=== PATIENT | female | born 1960 | race Asian ===

== ENCOUNTER 2020-02-26 15:20 | Outpatient (CLI) | payer BC ==
[2020-02-26 16:02] LABS: BASOPHILS % (AUTO) 0.9 % (0.0-2.0); EOSINOPHILS % (AUTO) 1.3 % (0.0-6.0); HEMATOCRIT 33 % (33-45); HEMOGLOBIN 9.5 g/dL (11.5-14.8); LYMPHOCYTES # (AUTO) 2.9 /CMM (0.8-4.8); LYMPHOCYTES % (AUTO) 58.8 % (20.0-44.0); MEAN CORPUSCULAR HGB CONC 29 g/dl (31.0-36.0); MEAN CORPUSCULAR VOLUME 56 fL (82-100); MONOCYTES # (AUTO) 0.2 /CMM (0.1-1.30); NEUTROPHILS # (AUTO) 1.7 /CMM (1.8-8.9); PLATELET COUNT (AUTO) 219 /CMM (150-450)
[2020-02-26 16:06] LABS: APPEARANCE,URINE CLEAR (CLEAR); BILIRUBIN,URINE NEGATIVE (NEGATIVE); BLOOD, URINE TRACE-INTA Ery/uL (NEGATIVE); COLOR,URINE YELLOW (YELLOW); KETONES,URINE NEGATIVE (NEGATIVE); LEUKOCYTE ESTERASE ,URINE SMALL (NEGATIVE); NITRITE, URINE NEGATIVE (NEGATIVE); PROTEIN,URINE NEGATIVE (NEGATIVE); UGLUCOSE NEGATIVE (NEGATIVE)
[2020-02-26 16:14] LABS: ALBUMIN 4.3 g/dL (3.4-5.0); BILIRUBIN,TOTAL 0.8 mg/dL (0.2-1.0); CALCIUM, SERUM 9.9 mg/dL (8.5-10.1); CREATININE 0.9 mg/dL (0.6-1.3); POTASSIUM 3.9 mmol/L (3.5-5.1)
[2020-02-26 16:17] LABS: WBC,URINE 51-80 /HPF (0-3)
[2020-02-26 16:18] LABS: BACTERIA,URINE 1+ /HPF (None Seen); SQUAMOUS EPITHELIAL CELL,UR Few /HPF (None Seen)
[2020-02-26 16:26] LABS: FREE T4 (FREE THYROXINE) 1.09 ng/dL (0.76-1.46); THYROID STIMULATING HORMONE 2.752 uIU/mL (0.358-3.74)
[2020-02-26 16:29] LABS: LYMPHOCYTES % (MANUAL) 35 % (16-48); MONOCYTES % (MANUAL) 8 % (0-11.0); NEUTROPHILS % (MANUAL) 57 (42-76)
[2020-02-27 08:07] LABS: FOLIC ACID 9.8 ng/mL (>3.0)
== END 2020-02-26 23:59 | disposition home or self-care (01) ==
LOC: LAB 15:20
PROVIDERS: ATTEND Legal Medicine
DX: E11.9 Type 2 diabetes mellitus without complications (principal); E55.9 Vitamin D deficiency, unspecified; E03.9 Hypothyroidism, unspecified; D64.9 Anemia, unspecified; Z00.00 Encounter for general adult medical examination without abnormal findings
CPT/HCPCS: 36415; 80053-TC; 80061-TC; 81000-TC; 82306; 82728-TC; 83540-TC; 84439-TC; 84443-TC; 84550-TC; 85025-TC; 85652-TC

== ENCOUNTER 2020-03-09 11:41 | Outpatient (CLI) | payer BC | END 2020-03-09 23:59 | disposition home or self-care (01) | LOC: MRI 11:41 | PROVIDERS: ATTEND Legal Medicine | DX: S83.242A Other tear of medial meniscus, current injury, left knee, initial encounter (principal); S73.102A Unspecified sprain of left hip, initial encounter; M25.462 Effusion, left knee; X58.XXXA Exposure to other specified factors, initial encounter; Y93.89 Activity, other specified; Y92.89 Other specified places as the place of occurrence of the external cause; Y99.8 Other external cause status | CPT/HCPCS: 73721-TC ==

== ENCOUNTER 2020-04-09 09:52 | Outpatient (CLI) | payer BC | END 2020-04-09 23:59 | disposition home or self-care (01) | LOC: LAB 09:52 | PROVIDERS: ATTEND Student in an Organized Health Care Education/Training Program | DX: Z01.812 Encounter for preprocedural laboratory examination (principal); Z20.828 Contact with and (suspected) exposure to other viral communicable diseases | CPT/HCPCS: 87426; C9803 ==

== ENCOUNTER 2020-04-14 06:11 | Day surgery (SDC) | payer BC ==
[2020-04-14] MEDS ORDERED: ANESTHESIA TRAY IN PYXIS 1 EA TRAY MC ONE (06:55)
[2020-04-14] MEDS ORDERED: LIDOCAINE 1% INJ 50 ML MDV IJ ONE (06:56)
[2020-04-14] MEDS ORDERED: FENTANYL PF 100MCG/2ML AMPUL ONE (07:33)
[2020-04-14] MEDS ORDERED: EPINEPHRINE (1:1000) 1 MG/ML AMPUL ONE ×2 (07:34→07:35)
[2020-04-14] MEDS ORDERED: MORPHINE SULFATE/PF 10 MG/10ML (1MG/ML) AMPUL ONE (08:03)
[2020-04-14] MEDS ORDERED: HYDROCODONE/APAP 10/325MG TABLET ONE (09:38)
== END 2020-04-14 10:30 | disposition home or self-care (01) ==
DX: S83.242A Other tear of medial meniscus, current injury, left knee, initial encounter (principal); D64.9 Anemia, unspecified; X58.XXXA Exposure to other specified factors, initial encounter; Y93.89 Activity, other specified; Y92.89 Other specified places as the place of occurrence of the external cause; Y99.8 Other external cause status; Z79.899 Other long term (current) drug therapy
CPT/HCPCS: 29881; A4217; A6253; J0171 ×2; J0690; J1100; J1885; J2274; J2405; J2704; J2765; J3010; J3490 ×2

== ENCOUNTER 2020-06-30 08:05 | Outpatient (CLI) | payer BC ==
[2020-06-30 10:18] LABS: BASOPHILS % (AUTO) 0.7 % (0.0-2.0); EOSINOPHILS % (AUTO) 1.6 % (0.0-6.0); HEMATOCRIT 35 % (33-45); HEMOGLOBIN 9.8 g/dL (11.5-14.8); LYMPHOCYTES # (AUTO) 2.7 /CMM (0.8-4.8); LYMPHOCYTES % (AUTO) 46.7 % (20.0-44.0); MEAN CORPUSCULAR HGB CONC 28 g/dl (31.0-36.0); MEAN CORPUSCULAR VOLUME 56 fL (82-100); MONOCYTES # (AUTO) 0.4 /CMM (0.1-1.30); MONOCYTES % (AUTO) 6.2 % (2.0-12.0); NEUTROPHILS # (AUTO) 2.6 /CMM (1.8-8.9); NEUTROPHILS % (AUTO) 44.8 % (43.0-81.0); PLATELET COUNT (AUTO) 269 /CMM (150-450); RED BLOOD CELL COUNT(AUTO) 6.16 MIL/uL (4.0-5.2); WHITE BLOOD COUNT (AUTO) 5.8 K/uL (4.3-11.0)
[2020-06-30 11:11] LABS: BILIRUBIN,URINE NEGATIVE (NEGATIVE); BLOOD, URINE NEGATIVE Ery/uL (NEGATIVE); COLOR,URINE YELLOW (YELLOW); LEUKOCYTE ESTERASE ,URINE TRACE (NEGATIVE); NITRITE, URINE NEGATIVE (NEGATIVE); PROTEIN,URINE NEGATIVE (NEGATIVE); UGLUCOSE NEGATIVE (NEGATIVE); UROBILINOGEN,URINE 0.2 EU/dL (0.2)
[2020-06-30 12:06] LABS: BACTERIA,URINE None seen /HPF (None Seen); RBC,URINE NONE SEEN /HPF (0-2); SQUAMOUS EPITHELIAL CELL,UR Few /HPF (None Seen); WBC,URINE 0-2 /HPF (0-3)
[2020-06-30 13:59] LABS: ALBUMIN 4.2 g/dL (3.4-5.0); BILIRUBIN,TOTAL 0.7 mg/dL (0.2-1.0); CALCIUM, SERUM 10.3 mg/dL (8.5-10.1); CREATININE 0.9 mg/dL (0.6-1.3); POTASSIUM 4.2 mmol/L (3.5-5.1); TOTAL PROTEIN, SERUM 7.7 g/dL (6.4-8.2)
== END 2020-06-30 23:59 | disposition home or self-care (01) ==
LOC: LAB 08:05
PROVIDERS: ATTEND Legal Medicine
DX: Z01.812 Encounter for preprocedural laboratory examination (principal); D64.9 Anemia, unspecified
CPT/HCPCS: 36415; 80053-TC; 81001; 85025-TC

== ENCOUNTER 2021-09-27 09:09 | Outpatient (CLI) | payer BC ==
[2021-09-27 10:06] LABS: HEMATOCRIT 31 % (33-45); MEAN CORPUSCULAR HGB CONC 29 g/dl (31.0-36.0); MEAN CORPUSCULAR VOLUME 55 fL (82-100); RED BLOOD CELL COUNT(AUTO) 5.66 MIL/uL (4.0-5.2); WHITE BLOOD COUNT (AUTO) 3.6 K/uL (4.3-11.0)
[2021-09-27 10:16] LABS: BILIRUBIN,URINE NEGATIVE (NEGATIVE); COLOR,URINE YELLOW (YELLOW); LEUKOCYTE ESTERASE ,URINE TRACE (NEGATIVE); NITRITE, URINE NEGATIVE (NEGATIVE); PROTEIN,URINE NEGATIVE (NEGATIVE); UGLUCOSE NEGATIVE (NEGATIVE); UROBILINOGEN,URINE 0.2 EU/dL (0.2)
[2021-09-27 10:50] LABS: FREE T4 (FREE THYROXINE) 0.98 ng/dL (0.76-1.46); THYROID STIMULATING HORMONE 1.088 uIU/mL (0.358-3.74); URIC ACID 5.2 mg/dL (2.6-7.2)
[2021-09-27 11:07] LABS: BILIRUBIN,TOTAL 0.7 mg/dL (0.2-1.0); CALCIUM, SERUM 9.4 mg/dL (8.5-10.1); CREATININE 0.7 mg/dL (0.6-1.3); TOTAL PROTEIN, SERUM 6.9 g/dL (6.4-8.2)
[2021-09-27 11:31] LABS: BACTERIA,URINE None seen /HPF (None Seen); RBC,URINE 0-2 /HPF (0-2); SQUAMOUS EPITHELIAL CELL,UR None Seen /HPF (None Seen)
[2021-09-27 15:56] LABS: EOSINOPHILS % (MANUAL) 3 % (0-4); LYMPHOCYTES % (MANUAL) 37 % (16-48); MONOCYTES % (MANUAL) 2 % (0-11.0); NEUTROPHILS % (MANUAL) 58 (42-76)
[2021-09-27 15:57] LABS: PLATELET COUNT (AUTO) 191 K/uL (150-450)
== END 2021-09-27 23:59 | disposition home or self-care (01) ==
LOC: LAB 09:09
PROVIDERS: ATTEND Legal Medicine
DX: E11.9 Type 2 diabetes mellitus without complications (principal); E55.9 Vitamin D deficiency, unspecified; E78.5 Hyperlipidemia, unspecified; E03.9 Hypothyroidism, unspecified; D64.9 Anemia, unspecified; M20.12 Hallux valgus (acquired), left foot; M79.89 Other specified soft tissue disorders; Z00.00 Encounter for general adult medical examination without abnormal findings
CPT/HCPCS: 36415; 73610-TC; 73630-TC; 80053-TC; 80061-TC; 81001; 82306; 82607-TC; 83540-TC; 84439-TC; 84443-TC; 84550-TC; 85025-TC

== ENCOUNTER 2021-10-05 14:15 | Outpatient (CLI) | payer BC | END 2021-10-05 23:59 | disposition home or self-care (01) | LOC: WOU 14:15 | PROVIDERS: ATTEND Podiatrist Foot & Ankle Surgery | DX: S93.402A Sprain of unspecified ligament of left ankle, initial encounter (principal); X58.XXXA Exposure to other specified factors, initial encounter; Y92.89 Other specified places as the place of occurrence of the external cause; Z79.82 Long term (current) use of aspirin | CPT/HCPCS: G0463 ==

== ENCOUNTER 2021-10-07 09:50 | Outpatient (CLI) | payer BC | END 2021-10-07 23:59 | disposition home or self-care (01) | LOC: WOU 09:50 | PROVIDERS: ATTEND Podiatrist Foot & Ankle Surgery | DX: S93.402D Sprain of unspecified ligament of left ankle, subsequent encounter (principal); X58.XXXD Exposure to other specified factors, subsequent encounter; M25.572 Pain in left ankle and joints of left foot; Z79.82 Long term (current) use of aspirin | CPT/HCPCS: G0463 ==

== ENCOUNTER → 2021-10-07 | Outpatient (CLI) | payer BC | END | disposition home or self-care (01) | LOC: MRI 11:05 | PROVIDERS: ATTEND Podiatrist Foot & Ankle Surgery | DX: S93.402A Sprain of unspecified ligament of left ankle, initial encounter (principal); M76.822 Posterior tibial tendinitis, left leg; M65.872 Other synovitis and tenosynovitis, left ankle and foot; X58.XXXA Exposure to other specified factors, initial encounter; Y93.89 Activity, other specified; Y92.89 Other specified places as the place of occurrence of the external cause; Y99.8 Other external cause status | CPT/HCPCS: 73721-TC ==

== ENCOUNTER 2021-10-14 10:00 | Outpatient (CLI) | payer BC | END 2021-10-14 23:59 | disposition home or self-care (01) | LOC: WOU 10:00 | PROVIDERS: ATTEND Podiatrist Foot & Ankle Surgery | DX: S93.402D Sprain of unspecified ligament of left ankle, subsequent encounter (principal); X58.XXXD Exposure to other specified factors, subsequent encounter; M25.572 Pain in left ankle and joints of left foot; Z79.82 Long term (current) use of aspirin | CPT/HCPCS: G0463 ==

== ENCOUNTER 2021-10-25 08:50 | Outpatient (CLI) | payer BC ==
[2021-10-25] MEDS ORDERED: LIDOCAINE HCL/PF 1% 30 ML VIAL IJ ONE (09:30)
[2021-10-25] MEDS ORDERED: ETHYL CHLORIDE SPRAY 1 EA BOTTLE TP ONE (09:30)
[2021-10-25] MEDS ORDERED: TRIAMCINOLONE ACETONIDE SUSP 40 MG/ML VIAL IM ONE (09:30)
== END 2021-10-25 23:59 | disposition home or self-care (01) ==
LOC: WOU 08:50
PROVIDERS: ATTEND Podiatrist Foot & Ankle Surgery
DX: S93.402A Sprain of unspecified ligament of left ankle, initial encounter (principal); X58.XXXA Exposure to other specified factors, initial encounter; Y92.89 Other specified places as the place of occurrence of the external cause; M76.72 Peroneal tendinitis, left leg; M25.572 Pain in left ankle and joints of left foot; R60.0 Localized edema
CPT/HCPCS: 20551; 20605; J3301; J3490

== ENCOUNTER 2021-11-08 08:50 | Outpatient (CLI) | payer BC | END 2021-11-08 23:59 | disposition home or self-care (01) | LOC: WOU 08:50 | PROVIDERS: ATTEND Podiatrist Foot & Ankle Surgery | DX: S93.402D Sprain of unspecified ligament of left ankle, subsequent encounter (principal); X58.XXXD Exposure to other specified factors, subsequent encounter; M76.72 Peroneal tendinitis, left leg; R60.0 Localized edema; Z79.82 Long term (current) use of aspirin | CPT/HCPCS: G0463 ==

== ENCOUNTER 2021-11-16 10:45 | Outpatient (CLI) | payer BC ==
[2021-11-16 11:43] LABS: BILIRUBIN,URINE NEGATIVE (NEGATIVE); COLOR,URINE YELLOW (YELLOW); LEUKOCYTE ESTERASE ,URINE TRACE (NEGATIVE); NITRITE, URINE NEGATIVE (NEGATIVE); PH,URINE 5.5 (5.0-8.0); PROTEIN,URINE NEGATIVE (NEGATIVE); UGLUCOSE NEGATIVE (NEGATIVE); UROBILINOGEN,URINE 0.2 EU/dL (0.2)
[2021-11-16 11:44] LABS: BASOPHILS % (AUTO) 0.4 % (0.0-2.0); EOSINOPHILS % (AUTO) 0.4 % (0.0-6.0); HEMATOCRIT 31 % (33-45); HEMOGLOBIN 9.5 g/dL (11.5-14.8); LYMPHOCYTES # (AUTO) 2.8 K/uL (0.8-4.8); LYMPHOCYTES % (AUTO) 51.9 % (20.0-44.0); MEAN CORPUSCULAR HGB CONC 31 g/dl (31.0-36.0); MEAN CORPUSCULAR VOLUME 55 fL (82-100); MONOCYTES # (AUTO) 0.2 K/uL (0.1-1.30); MONOCYTES % (AUTO) 4.4 % (2.0-12.0); NEUTROPHILS # (AUTO) 2.3 K/uL (1.8-8.9); NEUTROPHILS % (AUTO) 42.9 % (43.0-81.0); PLATELET COUNT (AUTO) 267 K/uL (150-450); RED BLOOD CELL COUNT(AUTO) 5.64 MIL/uL (4.0-5.2); WHITE BLOOD COUNT (AUTO) 5.3 K/uL (4.3-11.0)
[2021-11-16 12:03] LABS: BACTERIA,URINE Rare /HPF (None Seen); RBC,URINE NONE SEEN /HPF (0-2)
[2021-11-16 12:04] LABS: SQUAMOUS EPITHELIAL CELL,UR 0-2 /HPF (None Seen)
[2021-11-16 12:22] LABS: BAND % (MANUAL) 1 % (0.0-5.0); LYMPHOCYTES % (MANUAL) 29 % (16-48); MONOCYTES % (MANUAL) 5 % (0-11.0); NEUTROPHILS % (MANUAL) 65 (42-76)
[2021-11-16 12:26] LABS: ALBUMIN 4.3 g/dL (3.4-5.0); BILIRUBIN,TOTAL 0.8 mg/dL (0.2-1.0); CALCIUM, SERUM 9.9 mg/dL (8.5-10.1); CREATININE 0.8 mg/dL (0.6-1.3); POTASSIUM 4.2 mmol/L (3.5-5.1); TOTAL PROTEIN, SERUM 7.6 g/dL (6.4-8.2)
[2021-11-16 15:40] LABS: THYROID STIMULATING HORMONE 1.581 uIU/mL (0.358-3.74); URIC ACID 5.2 mg/dL (2.6-7.2)
== END 2021-11-16 23:59 | disposition home or self-care (01) ==
LOC: LAB 10:45
PROVIDERS: ATTEND Legal Medicine
DX: Z00.00 Encounter for general adult medical examination without abnormal findings (principal); R53.1 Weakness; E03.9 Hypothyroidism, unspecified; E55.9 Vitamin D deficiency, unspecified; E78.00 Pure hypercholesterolemia, unspecified; E11.9 Type 2 diabetes mellitus without complications; D64.9 Anemia, unspecified
CPT/HCPCS: 36415; 80053-TC; 80061-TC; 81001; 82306; 83540-TC; 84443-TC; 84550-TC; 85025-TC

== ENCOUNTER 2021-12-07 13:40 | Outpatient (CLI) | payer BC | END 2021-12-07 23:59 | disposition home or self-care (01) | LOC: WOU 13:40 | PROVIDERS: ATTEND Podiatrist Foot & Ankle Surgery | DX: S93.402D Sprain of unspecified ligament of left ankle, subsequent encounter (principal); X58.XXXD Exposure to other specified factors, subsequent encounter; M76.72 Peroneal tendinitis, left leg; M67.472 Ganglion, left ankle and foot; R60.0 Localized edema; M25.572 Pain in left ankle and joints of left foot; Z79.82 Long term (current) use of aspirin | CPT/HCPCS: G0463 ==

== ENCOUNTER 2021-12-16 13:46 | Outpatient (CLI) | payer BC ==
[2021-12-16 14:53] LABS: BASOPHILS % (AUTO) 0.4 % (0.0-2.0); EOSINOPHILS % (AUTO) 0.4 % (0.0-6.0); HEMATOCRIT 30 % (33-45); HEMOGLOBIN 8.9 g/dL (11.5-14.8); LYMPHOCYTES # (AUTO) 2.4 K/uL (0.8-4.8); LYMPHOCYTES % (AUTO) 43.5 % (20.0-44.0); MEAN CORPUSCULAR HGB CONC 30 g/dl (31.0-36.0); MEAN CORPUSCULAR VOLUME 56 fL (82-100); MONOCYTES # (AUTO) 0.2 K/uL (0.1-1.30); MONOCYTES % (AUTO) 4.3 % (2.0-12.0); NEUTROPHILS # (AUTO) 2.9 K/uL (1.8-8.9); NEUTROPHILS % (AUTO) 51.4 % (43.0-81.0); PLATELET COUNT (AUTO) 231 K/uL (150-450); RED BLOOD CELL COUNT(AUTO) 5.34 MIL/uL (4.0-5.2); WHITE BLOOD COUNT (AUTO) 5.6 K/uL (4.3-11.0)
[2021-12-16 15:36] LABS: EOSINOPHILS % (MANUAL) 2 % (0-4); LYMPHOCYTES % (MANUAL) 35 % (16-48); MONOCYTES % (MANUAL) 5 % (0-11.0); NEUTROPHILS % (MANUAL) 58 (42-76)
== END 2021-12-16 23:59 | disposition home or self-care (01) ==
LOC: LAB 13:46
PROVIDERS: ATTEND Podiatrist Foot & Ankle Surgery
DX: Z01.818 Encounter for other preprocedural examination (principal); M76.821 Posterior tibial tendinitis, right leg; M67.472 Ganglion, left ankle and foot
CPT/HCPCS: 36415; 71045-TC; 85025-TC; 85610-TC; 85730-TC

== ENCOUNTER 2022-01-18 12:45 | Outpatient (CLI) | payer BC | END 2022-01-18 23:59 | disposition home or self-care (01) | LOC: WOU 12:45 | PROVIDERS: ATTEND Podiatrist Foot & Ankle Surgery | DX: S93.402D Sprain of unspecified ligament of left ankle, subsequent encounter (principal); X58.XXXD Exposure to other specified factors, subsequent encounter; M67.472 Ganglion, left ankle and foot; M76.72 Peroneal tendinitis, left leg; R60.0 Localized edema; M25.572 Pain in left ankle and joints of left foot; Z79.82 Long term (current) use of aspirin ==

== ENCOUNTER 2022-02-13 13:02 | Outpatient (CLI) | payer BC | END 2022-02-13 23:59 | disposition home or self-care (01) | LOC: RAD 13:02 | PROVIDERS: ATTEND Podiatrist Foot & Ankle Surgery | DX: Z01.89 Encounter for other specified special examinations (principal); M79.672 Pain in left foot; R60.0 Localized edema; Z96.698 Presence of other orthopedic joint implants | CPT/HCPCS: 73630-TC ==

== ENCOUNTER 2022-02-17 09:10 | Outpatient (CLI) | payer BC | END 2022-02-17 23:59 | disposition home or self-care (01) | LOC: WOU 09:10 | PROVIDERS: ATTEND Podiatrist Foot & Ankle Surgery | DX: Z48.89 Encounter for other specified surgical aftercare (principal); Z96.89 Presence of other specified functional implants; M76.72 Peroneal tendinitis, left leg; M67.472 Ganglion, left ankle and foot; M25.572 Pain in left ankle and joints of left foot; R60.0 Localized edema; Z79.82 Long term (current) use of aspirin ==

== ENCOUNTER 2022-03-03 08:55 | Outpatient (CLI) | payer BC | END 2022-03-03 23:59 | disposition home or self-care (01) | LOC: WOU 08:55 | PROVIDERS: ATTEND Podiatrist Foot & Ankle Surgery | DX: Z47.89 Encounter for other orthopedic aftercare (principal); Z98.1 Arthrodesis status; M25.572 Pain in left ankle and joints of left foot; M79.672 Pain in left foot | CPT/HCPCS: G0463 ==

== ENCOUNTER 2022-03-28 10:53 | Outpatient (CLI) | payer BC | END 2022-03-28 23:59 | disposition home or self-care (01) | LOC: RAD 10:53 | PROVIDERS: ATTEND Podiatrist Foot & Ankle Surgery | DX: M85.872 Other specified disorders of bone density and structure, left ankle and foot (principal); Z96.698 Presence of other orthopedic joint implants | CPT/HCPCS: 73630-TC ==

== ENCOUNTER 2022-03-31 08:50 | Outpatient (CLI) | payer BC | END 2022-03-31 23:59 | disposition home or self-care (01) | LOC: WOU 08:50 | PROVIDERS: ATTEND Podiatrist Foot & Ankle Surgery | DX: M76.72 Peroneal tendinitis, left leg (principal); M25.572 Pain in left ankle and joints of left foot; R60.0 Localized edema; Z79.82 Long term (current) use of aspirin | CPT/HCPCS: 29580-LT ==